=== PATIENT | female | born 1985 | race Caucasian/White ===

== ENCOUNTER 2019-01-17 09:16 | Emergency (ER) | payer BC ==
--- NOTE | 2019-01-17 09:19 | C.PDOC ---
Time Seen by Provider: 01/17/19 09:19 Chief Complaint (Nursing): Headache Disposition - Disposition
[2019-01-17 09:30] VITALS: O2SAT 100
[2019-01-17] MEDS ORDERED: Apap-Butalbital-Caffeine 325-50-40mg Tab PO STA (09:49)
--- NOTE | 2019-01-17 09:52 | C.PDOC ---
History Of Present Illness 33 y/o female presents to the ER complaining of frontal headache which began in the morning. Patient states that she has associated nausea. Patient reports that her headache improved after she ate breakfast.Patient reports that the headache is typical of the headaches she had in the past. She has history of headache for the past 10-12 years. She usually has headache with associated nausea, vomiting, and occasional blurry vision. She notes that she was evaluated once in [place] and a doctor told her that she has sinus congestion. She states that she has taken Tylenol and Sudafed without relief in the past. Denies having fever,chills,CP,SOB, and vomiting. Time Seen by Provider: 01/17/19 09:19 Chief Complaint (Nursing): Headache History Per: Patient History/Exam Limitations: no limitations Onset/Duration Of Symptoms: Days Current Symptoms Are (Timing): Still Present Severity: Moderate Past Medical History Reviewed: Historical Data, Nursing Documentation, Vital Signs Vital Signs: Last Vital Signs Temp 98.1 F 01/17/19 09:25 Pulse 86 01/17/19 09:25 Resp 18 01/17/19 09:25 BP 123/84 01/17/19 09:25 Pulse Ox 100 01/17/19 09:25 Primary Care Provider: FAMILY PROVIDER,NO - Medical History PMH: No Chronic Diseases Surgical History: Appendectomy Family History: States: No Known Family Hx - Social History Hx Alcohol Use: No Hx Substance Use: No - Immunization History Hx Tetanus Toxoid Vaccination: No Hx Influenza Vaccination: No Hx Pneumococcal Vaccination: No Review Of Systems Except As Marked, All Systems Reviewed And Found Negative. Constitutional: Negative for: Fever, Chills Cardiovascular: Negative for: Chest Pain Respiratory: Negative for: Shortness of Breath Gastrointestinal: Positive for: Nausea. Negative for: Vomiting, Abdominal Pain Neurological: Positive for: Headache. Negative for: Dizziness Physical Exam - Physical Exam Appears: Non-toxic, No Acute Distress Skin: Normal Color, Warm, Dry Head: Atraumatic, Normacephalic Eye(s): bilateral: Normal Inspection, PERRL, EOMI Nose: Normal Oral Mucosa: Moist Neck: Supple Chest: Symmetrical Cardiovascular: Rhythm Regular Respiratory: Normal Breath Sounds, No Rales, No Rhonchi, No Wheezing Neurological/Psych: Oriented x3, Normal Speech, Normal Motor, Normal Sensation ED Course And Treatment O2 Sat by Pulse Oximetry: 100 (RA) Pulse Ox Interpretation: Normal Progress Note: Patient treated with Fioriect PO.On re-evaluation, patient feels better. Patient has been discharged and instructed to follow up with log loader helper and neurologist. Disposition Counseled Patient/Family Regarding: Diagnosis, Need For Followup, Rx Given - Disposition Referrals: Jerome Hicks MD [Staff Provider] - Carlos Chatman MD [Staff Provider] - Disposition: HOME/ ROUTINE Disposition Time: 10:15 Additional Instructions: FOLLOW UP WITH NEUROLOGY WITHIN 1 WEEK USE MEDICATION FOR HEADACHE NEEDED RETURN TO ER IF SYMPTOMS WORSEN FOLLOW UP WITH GENERAL INTERNAL MEDICINE IN 1-2 DAYS Prescriptions: Acetaminophen/Butalbital/Caf [Fioricet] 1 tab PO TID PRN #20 tab PRN Reason: Headache Instructions: Migraine Headache (DC) Forms: [employer] (Armenian) Print Language: TAJIK - Clinical Impression Clinical Impression: Migraine - Scribe Statement The provider has reviewed the documentation as recorded by the Katibe Laquita Sheffield Provider Attestation: All medical record entries made by the Katibmarie were at my direction and personally dictated by me. I have reviewed the chart and agree that the record accurately reflects my personal performance of the history, physical exam, medical decision making, and the department course for this patient. I have also personally directed, reviewed, and agree with the discharge instructions and disposition.
[2019-01-17] MEDS ORDERED: Apap-Butalbital-Caffeine 325-50-40mg Tab ONE (10:34)
[2019-01-17 11:07] VITALS: BP 133/77; PULSE 70; RESP 20; TEMP 98.6
== END 2019-01-17 11:07 | disposition home or self-care (01) ==
LOC: C.ER 09:16
DX: G43.909 Migraine, unspecified, not intractable, without status migrainosus (principal)